=== PATIENT | female | born 1965 ===

== ENCOUNTER 2018-04-25 15:24 | Emergency (ER) | payer MEDICAID ==
[2018-04-25 15:37] VITALS: BP 107/74; PULSE 83; RESP 18; TEMP 98.7; O2SAT 99
[2018-04-25 16:33] LABS: SQUAMOUS EPITHIAL 5 /hpf (0-5); URINE BILIRUBIN NEGATIVE (NEGATIVE); URINE BLOOD NEGATIVE (NEGATIVE); URINE CLARITY Hazy (Clear); URINE COLOR Yellow (YELLOW); URINE GLUCOSE (UA) NORMAL (Normal); URINE LEUKOCYTE ESTERASE 3+ Leu/uL (Negative); URINE PROTEIN NEGATIVE (NEGATIVE); URINE UROBILINOGEN NORMAL mg/dL (0.2-1.0)
--- NOTE | 2018-04-25 16:33 | C.PDOC ---
History Of Present Illness 52 year old female presents to the ED for evaluation of vaginal irritation, dryness and itchiness which gradually developed over the past 3 months. Patient reports, was seen by [facility] 2 months ago, received Clotrimazol cream without improvement in sx. Patient also reports a pruritic rash to her bilateral upper extremities which developed over the past few days. Otherwise,pt denies previous known allergy to food, denies fever, chills, drooling, dysphagia, dyspnea, chest pain, shortness of breath, cough, wheezing, abdominal pain, dysuria, hematuria, back pain. Ambulate to Ed for evaluation, not in any apparent distress. Time Seen by Provider: 04/25/18 15:41 Chief Complaint (Nursing): Abnormal Skin Integrity History Per: Patient History/Exam Limitations: no limitations Onset/Duration Of Symptoms: Days, Gradual, Other (3 months ) Current Symptoms Are (Timing): Still Present Location Of Injury: Right: Arm, Left: Arm Quality Of Symptoms: Itching Additional History Per: Patient Past Medical History Reviewed: Historical Data, Nursing Documentation, Vital Signs Vital Signs: Last Vital Signs Temp 98.7 F 04/25/18 15:31 Pulse 83 04/25/18 15:31 Resp 18 04/25/18 15:31 BP 107/74 04/25/18 15:31 Pulse Ox 99 04/25/18 16:37 - Medical History PMH: No Chronic Diseases Surgical History: No Surg Hx - [facility] Procedures PERCUTAN NEEDLE BIOPSY OF BREAST (02/26/14) Family History: States: Unknown Family Hx - Social History Hx Tobacco Use: No Hx Alcohol Use: No Hx Substance Use: No - Immunization History Hx Tetanus Toxoid Vaccination: No Hx Influenza Vaccination: No Hx Pneumococcal Vaccination: No Review Of Systems Constitutional: Negative for: Fever, Chills Cardiovascular: Negative for: Chest Pain Respiratory: Negative for: Cough, Shortness of Breath Gastrointestinal: Negative for: Abdominal Pain Genitourinary: Positive for: Other (vaginal irritation, dryness and itchiness ) . Negative for: Dysuria, Hematuria, Vaginal Discharge, Vaginal Bleeding Skin: Positive for: Rash (pruritic, to bilateral upper extremities ) Physical Exam - Physical Exam Appears: Well, Non-toxic, No Acute Distress Skin: Warm, Dry, Rash (macular, erythematous, scattered rash to bilateral upper extremities. no edema, no cellulitis.) Head: Normacephalic Eye(s): bilateral: PERRL Ear(s): Bilateral: Normal Nose: No Flaring, No Discharge Oral Mucosa: Moist, No Drooling Throat: No Drooling Neck: Trachea Midline, Supple Chest: Symmetrical, No Deformity, No Tenderness Cardiovascular: Rhythm Regular Respiratory: No Decreased Breath Sounds, No Accessory Muscle Use, No Stridor, No Wheezing Gastrointestinal/Abdominal: Soft, No Tenderness, No Distention, No Guarding Pelvic: Normal Bimanual Exam, No Vaginal Bleeding, No Vaginal Discharge, Other ( pale discoloration to vulva with dryness) Extremity: No Deformity, No Swelling Neurological/Psych: Oriented x3, Normal Speech ED Course And Treatment O2 Sat by Pulse Oximetry: 99 (on RA) Pulse Ox Interpretation: Normal Progress Note: Urinalysis ordered and reviewed. Pepcid PO and Prednisone PO administered. On re-eval, pt is afebrile, hemodynamicaly stable. Non-toxic. PulseOx 99% RA. ENT: no acute findings. uvula midline, no edema. neck: Supple , (-) JVD. Lungs: CTA B/L, BS equal B/L. Abd: benign, (-) guaridng, (-) rebound. back: (-) CVA tenderness. Pelvic exam: findings c/w early atopic vulvovaginitis, no edema, no erythema, no discharges. UA results review (+) WBC , RBC. Pt avdise. re.f to f/u with PMD, [facility] in 2-3 days for re-eavl. Return to ED if any worsening or new changes. Disposition Counseled Patient/Family Regarding: Studies Performed, Diagnosis, Need For Followup, Rx Given - [facility]position [facility] Disposition: HOME/ ROUTINE Disposition Time: 16:30 Condition: STABLE Additional Instructions: Take medication as prescribed Follow up with PMD, [facility] in 2-3 days for re-evaluation. return to ED if any worsening or new changes. Prescriptions: Famotidine [Pepcid] 20 mg PO BID #10 tab Nitrofurantoin Macrocrystals [Macrobid] 1 cap PO BID #14 cap Prednisone [Deltasone] 20 mg PO DAILY #3 tablet Instructions: Urinary Tract Infections in Adults, Perimenopause, Vulvitis, Hives Forms: [employer] ([place]) - Clinical Impression Clinical Impression: UTI (urinary tract infection), Urticaria, Atrophic vulvovaginitis - PA / MOTION GRAPHICS ARTIST / Resident Statement MD/DO has reviewed & agrees with the documentation as recorded. - Scribe Statement The provider has reviewed the documentation as recorded by the Scribe (Chloe Moses) All medical record entries made by the Scribe were at my direction and personally dictated by me. I have reviewed the chart and agree that the record accurately reflects my personal performance of the history, physical exam, medical decision making, and the department course for this patient. I have also personally directed, reviewed, and agree with the discharge instructions and disposition.
== END 2018-04-25 16:50 | disposition home or self-care (01) ==
LOC: C.ER 15:24
DX: N39.0 Urinary tract infection, site not specified (principal); L50.9 Urticaria, unspecified; N95.2 Postmenopausal atrophic vaginitis

== ENCOUNTER 2018-05-02 00:46 | Emergency (ER) | payer MEDICAID ==
[2018-05-02 00:59] VITALS: RESP 16
--- NOTE | 2018-05-02 01:12 | C.PDOC ---
History Of Present Illness Patient presents to the ER with a complaint of a diffuse urticarial rash. Patient was seen a weeks ago for the same complaint but states the rash has not improved. Patient notes she is allergic to benadryl and is refusing to take it. Denies fever, chills, or SOB. Time Seen by Provider: 05/02/18 01:12 Chief Complaint (Nursing): Abnormal Skin Integrity History Per: Patient History/Exam Limitations: no limitations Onset/Duration Of Symptoms: Days Current Symptoms Are (Timing): Still Present Quality Of Symptoms: Other (Diffuse urticaria) Severity: Moderate Pain Scale Rating Of: 4 Recent travel outside of the [place]: No Past Medical History Reviewed: Historical Data, Nursing Documentation, Vital Signs Vital Signs: Last Vital Signs Temp 97.7 F 05/02/18 00:52 Pulse 86 05/02/18 00:52 Resp 16 05/02/18 00:52 BP 107/72 05/02/18 00:52 Pulse Ox 100 05/02/18 01:32 - Medical History PMH: No Chronic Diseases - [facility] Procedures PERCUTAN NEEDLE BIOPSY OF BREAST (02/26/14) Family History: States: No Known Family Hx - Social History Hx Tobacco Use: No Hx Alcohol Use: No Hx Substance Use: No - Immunization History Hx Tetanus Toxoid Vaccination: No Hx Influenza Vaccination: No Hx Pneumococcal Vaccination: No Review Of Systems Constitutional: Negative for: Fever, Chills ENT: Negative for: Throat Swelling Respiratory: Negative for: Shortness of Breath, Wheezing Gastrointestinal: Negative for: Nausea, Vomiting Skin: Positive for: Rash Physical Exam - Physical Exam Appears: Non-toxic Skin: Warm, Dry, Rash (Diffuse urticaria) Head: Normacephalic Oral Mucosa: Moist Chest: Symmetrical, No Tenderness Cardiovascular: Rhythm Regular Respiratory: No Rales, No Rhonchi, No Wheezing Gastrointestinal/Abdominal: Soft, No Tenderness Neurological/Psych: Oriented x3 ED Course And Treatment O2 Sat by Pulse Oximetry: 100 (room air) Pulse Ox Interpretation: Normal Progress Note: Pepcid and solumedrol administered. Reevaluation Time: 02:30 Reassessment Condition: Improved Disposition Counseled Patient/Family Regarding: Studies Performed, Diagnosis, Need For Followup, Rx Given - Disposition Referrals: [facility] [Outside] [facility] [Outside] Disposition: HOME/ ROUTINE Disposition Time: 01:12 Condition: FAIR Additional Instructions: Please use claritin and pepcid as well as the prednisone Prescriptions: Prednisone [Deltasone] 20 mg PO DAILY #5 tablet Instructions: Jack (DC) Forms: [employer] ([place]) - Clinical Impression Clinical Impression: Urticaria - Scribe Statement The provider has reviewed the documentation as recorded by the Scribe Juan Pablo Perez All medical record entries made by the Scribe were at my direction and personally dictated by me. I have reviewed the chart and agree that the record accurately reflects my personal performance of the history, physical exam, medical decision making, and the department course for this patient. I have also personally directed, reviewed, and agree with the discharge instructions and disposition.
[2018-05-02] MEDS ORDERED: Dexamethasone 4 mg/1 ml IVP STA (02:30)
[2018-05-02] MEDS ORDERED: Dexamethasone 4 mg/1 ml ONE (02:47)
[2018-05-02 03:02] VITALS: BP 106/71; PULSE 78; TEMP 97.6; O2SAT 98
== END 2018-05-02 03:15 | disposition home or self-care (01) ==
LOC: C.ER 00:46
DX: L50.9 Urticaria, unspecified (principal)
CPT/HCPCS: 96374; 96375; 99284; J1100; J2930